=== PATIENT | female | born 1945 | race Caucasian/White ===

== ENCOUNTER → 2024-06-09 | Outpatient (REF) | payer MEDICARE, BC ==
[2024-06-09 15:56] LABS: HEMATOCRIT 40.5 % (37.0-47.0); HEMOGLOBIN 12.8 g/dL (12.5-16.0); MEAN PLATELET VOLUME 10.6 fl (7.4-10.4); RED BLOOD COUNT 4.37 M/mm3 (4.10-5.30); RED CELL DISTRIBUTION WIDTH 15.9 % (11.5-14.5); WHITE BLOOD COUNT 7.5 K/mm3 (4.8-10.8)
[2024-06-09 15:59] LABS: ALBUMIN 4.2 g/dL (3.4-4.8)
[2024-06-09 16:01] LABS: CALCIUM 9.8 mg/dL (8.3-10.5)
[2024-06-09 16:02] LABS: TOTAL PROTEIN 7.5 g/dL (6.2-8.1)
[2024-06-09 16:04] LABS: TOTAL BILIRUBIN 0.7 mg/dL (0.2-1.2)
== END ==
LOC: LAB 15:36
PROVIDERS: Family Medicine
DX: N18.9 Chronic kidney disease, unspecified (principal)

== ENCOUNTER → 2024-07-21 | Outpatient (REF) | payer MEDICARE, BC ==
[2024-07-21 05:19] LABS: CALCIUM 9.2 mg/dL (8.3-10.5)
== END ==
LOC: LAB 04:00
PROVIDERS: Family Medicine
DX: I50.32 Chronic diastolic (congestive) heart failure (principal)

== ENCOUNTER → 2024-08-12 | Outpatient (REF) | payer MEDICARE, BC ==
[2024-08-12 05:54] LABS: CALCIUM 8.9 mg/dL (8.3-10.5)
== END ==
LOC: LAB 05:24
PROVIDERS: Family Medicine
DX: I50.32 Chronic diastolic (congestive) heart failure (principal)

== ENCOUNTER → 2024-09-16 | Outpatient (REF) | payer MEDICARE, BC ==
[2024-09-16 14:56] LABS: CALCIUM 8.9 mg/dL (8.3-10.5)
== END ==
LOC: LAB 14:33
PROVIDERS: Family Medicine
DX: I21.4 Non-ST elevation (NSTEMI) myocardial infarction (principal)

== ENCOUNTER 2024-12-09 17:48 | Emergency (ER) | payer MEDICARE, BC ==
[~2024-12-09] VITALS: Ht 157.5 cm; Wt 81.6 kg
[2024-12-09] MEDS ORDERED: 8 HOUR PAIN RE650 M1 (18:11)
[2024-12-09] MEDS ORDERED: AMIODARONE200 MG (18:12)
[2024-12-09] MEDS ORDERED: VITAMIN C PUR1000 MG (18:13)
[2024-12-09] MEDS ORDERED: ATORVASTATIN CA20 MG (18:14)
[2024-12-09] MEDS ORDERED: WELLBUTRIN 75MG75 MG (18:14)
[2024-12-09] MEDS ORDERED: CARBIDOPA AND L1 OD1 (18:15)
[2024-12-09] MEDS ORDERED: CARBIDOPA/LEVODOPA (18:16)
[2024-12-09] MEDS ORDERED: VITAMIN D31250 MC2 PO (18:18)
[2024-12-09] MEDS ORDERED: CRANBERRY450 M2 (18:18)
[2024-12-09] MEDS ORDERED: CYCLOBENZAPRINE PO (18:19)
[2024-12-09] MEDS ORDERED: ARICEPT10 M1 PO (18:20)
[2024-12-09] MEDS ORDERED: IPRATROPIUM BROM3 M1 IH (18:21)
[2024-12-09] MEDS ORDERED: DRIZALMA SPRINK60 MG PO (18:21)
[2024-12-09] MEDS ORDERED: FUROSEMIDE40 MG (18:22)
[2024-12-09] MEDS ORDERED: HYDROXYZINE HCL25 M1 PO (18:23)
[2024-12-09] MEDS ORDERED: LOSARTAN POTAS100 MG PO (18:24)
[2024-12-09] MEDS ORDERED: MEMANTINE HCL10 MG PO (18:25)
[2024-12-09] MEDS ORDERED: OMEPRAZOLE40 MG PO (18:27)
[2024-12-09] MEDS ORDERED: ROPINIROLE12 MG PO (18:28)
[2024-12-09] MEDS ORDERED: DESYREL 100MG100 MG PO (18:28)
[2024-12-09] MEDS ORDERED: INBRIJA42 M1 IH (18:30)
[2024-12-09] MEDS ORDERED: LOPERAMIDE2 M2 PO (18:31)
[2024-12-09] MEDS ORDERED: MAGNESIUM250 M1 PO (18:31)
[2024-12-09] MEDS ORDERED: PROBIOTIC1 EAC1 PO (18:32)
[2024-12-09] MEDS ORDERED: MULTIPLE VITAMI1 TA5 PO (18:32)
[2024-12-09] MEDS ORDERED: B COMPLEX1 EACH PO (18:33)
[2024-12-09] MEDS ORDERED: ZINC-22050 MG PO (18:34)
[2024-12-09] MEDS ORDERED: VITAMIN E450 M1 PO (18:34)
[2024-12-09] MEDS ORDERED: SYMBICORT1 AE2 IH (18:35)
[2024-12-09 19:46] VITALS: BP 147/66
== END 2024-12-09 19:46 | disposition home or self-care (01) ==
LOC: ED 17:48
DX: M25.551 Pain in right hip (principal); M25.561 Pain in right knee; W18.11XA Fall from or off toilet without subsequent striking against object, initial encounter

== ENCOUNTER → 2025-01-10 | Outpatient (REF) | payer MEDICARE, BC ==
[~2025-01-10] MED LIST: 8 HOUR PAIN RE650 M1; AMIODARONE200 MG; ARICEPT10 M1 PO; ATORVASTATIN CA20 MG; B COMPLEX1 EACH PO; CARBIDOPA AND L1 OD1; CARBIDOPA/LEVODOPA; CRANBERRY450 M2; CYCLOBENZAPRINE PO; DESYREL 100MG100 MG PO; DRIZALMA SPRINK60 MG PO; FUROSEMIDE40 MG; HYDROXYZINE HCL25 M1 PO; INBRIJA42 M1 IH; IPRATROPIUM BROM3 M1 IH; LOPERAMIDE2 M2 PO; LOSARTAN POTAS100 MG PO; MAGNESIUM250 M1 PO; MEMANTINE HCL10 MG PO; MULTIPLE VITAMI1 TA5 PO; OMEPRAZOLE40 MG PO; PROBIOTIC1 EAC1 PO; ROPINIROLE12 MG PO; SYMBICORT1 AE2 IH; VITAMIN C PUR1000 MG; VITAMIN D31250 MC2 PO; VITAMIN E450 M1 PO; WELLBUTRIN 75MG75 MG; ZINC-22050 MG PO
[2025-01-10 07:47] LABS: PH-URINE 8.5 (5.0 - 8.0); URINE APPEARANCE CLOUDY (CLEAR); URINE BILIRUBIN NEGATIVE (NEGATIVE); URINE BLOOD TRACE-INTACT (NEGATIVE); URINE COLOR YELLOW (YELLOW); URINE GLUCOSE NEGATIVE (NEGATIVE); URINE KETONE NEGATIVE (NEGATIVE); URINE LEUKOCYTE ESTERASE 3+ (NEGATIVE); URINE MUCUS PRESENT (NOT PRESENT); URINE NITRATE POSITIVE (NEGATIVE); URINE PROTEIN(semi-quant) 2+ (NEGATIVE); URINE WBC >50 /hpf (0-3)
== END ==
LOC: LAB 06:40
PROVIDERS: Nurse Practitioner
DX: N39.41 Urge incontinence (principal); R33.8 Other retention of urine

== ENCOUNTER 2025-02-10 13:22 | Emergency (ER) | payer MEDICARE, BC ==
[~2025-02-10] VITALS: Wt 83.3 kg
[2025-02-10 13:53] LABS: HEMATOCRIT 42.4 % (37.0-47.0); HEMOGLOBIN 13.8 g/dL (12.5-16.0); MEAN CELL VOLUME 93 fl (78-100); MEAN CORPUSCULAR HEMOGLOBIN 30 pg (27-31); MEAN CORPUSCULAR HGB CONC 33 g/dL (33-37); MEAN PLATELET VOLUME 10.8 fl (7.4-10.4); PLATELET COUNT 191 K/mm3 (130-400); RED BLOOD COUNT 4.58 M/mm3 (4.10-5.30); RED CELL DISTRIBUTION WIDTH 16.5 % (11.5-14.5)
[2025-02-10 13:59] LABS: ALBUMIN 3.7 g/dL (3.4-4.8)
[2025-02-10] MEDS ORDERED: NS 500 ML IV SCH (14:00)
[2025-02-10] MEDS ORDERED: cefTRIAXone 1 G in Water For Injection,Sterile 10 ML IV ONE (14:00)
[2025-02-10 14:01] LABS: CALCIUM 8.9 mg/dL (8.3-10.5); WHITE BLOOD COUNT 31.7 K/mm3 (4.8-10.8)
[2025-02-10 14:02] LABS: TOTAL PROTEIN 7.7 g/dL (6.2-8.1)
[2025-02-10 14:04] LABS: TOTAL BILIRUBIN 0.9 mg/dL (0.2-1.2)
[2025-02-10] MEDS ORDERED: NS 1,000 ML IV SCH (14:15)
[2025-02-10] MEDS ORDERED: Piperacillin/Tazobactam Sodium 4.5 GM in Water For Injection,Sterile 20 ML IV ONE (14:15)
[2025-02-10 14:33] LABS: BAND 20 % (0-10); LYMPHOCYTE 2 % (20-51); MONOCYTE 9 % (3-10); NEUTROPHILS 69 % (42-75); TOXIC GRANULATION PRESENT
[2025-02-10 14:38] LABS: URINE APPEARANCE TURBID (CLEAR); URINE COLOR DARK YELLOW (YELLOW)
[2025-02-10 14:39] LABS: URINE BILIRUBIN 1+ (NEGATIVE); URINE BLOOD 2+ (NEGATIVE); URINE GLUCOSE NEGATIVE (NEGATIVE); URINE KETONE TRACE (NEGATIVE); URINE LEUKOCYTE ESTERASE 3+ (NEGATIVE); URINE NITRATE NEGATIVE (NEGATIVE); URINE PROTEIN(semi-quant) 3+ (NEGATIVE); URINE WBC >50 /hpf (0-3)
[2025-02-10 14:40] LABS: URINE MUCUS PRESENT (NOT PRESENT)
[2025-02-10] MEDS ORDERED: SENNA8.6 M1 PO (16:50)
[2025-02-10] MEDS ORDERED: SYMBICORT1 AE2 (16:51)
[2025-02-10] MEDS ORDERED: GUAIFENESIN ER600 M1 PO (16:51)
[2025-02-10 17:40] VITALS: BP 129/99
== END 2025-02-10 17:40 | disposition short-term general hospital (02) ==
LOC: ED 13:22
PROVIDERS: Family Medicine
DX: A41.9 Sepsis, unspecified organism (principal); R07.9 Chest pain, unspecified; R10.814 Left lower quadrant abdominal tenderness; R79.89 Other specified abnormal findings of blood chemistry; Z87.19 Personal history of other diseases of the digestive system
CPT/HCPCS: J2543; J3370; J7030; J7050; J7120